=== PATIENT | female | born 1935 | race Caucasian/White ===

== ENCOUNTER 2017-02-17 12:41 | Observation (INO) | payer OTHER ==
[~2017-02-17] VITALS: Ht 170.2 cm; Wt 80.0 kg
[~2017-02-17 12:41] MED LIST: CO Q100C9 PO; GLUC500C3 PO; PRAV20 PO; TAB-TAB PO; [UNRECOGNIZED DRUG - REMARK]
[2017-02-17 12:46] VITALS: PULSE 68; RESP 18; TEMP 97.9; O2SAT 98
[2017-02-17 12:55] VITALS: BP 122/56; PULSE 66
--- NOTE | 2017-02-17 12:55 | PD ---
HPI Chief Complaint: Chest Pain Time Seen by Provider: 12:52 Travel History International Travel<30 days: No Contact w/Intl Traveler<30days: No Traveled to known affect area: No History of Present Illness HPI 82-year-old female presents to the emergency department via EMS for evaluation and midsternal chest pain that radiates to the back. Patient states this started last night around dinnertime. She states it has been continuous since then. Patient was given aspirin 162 mg by mouth and nitroglycerin 3 via EMS. She states her pain went from 05/03-01/01. She states it is worse with deep breathing. She denies any fevers or chills. No cough or congestion. No nausea or vomiting. No diaphoresis. Patient reports history of hypertension, diabetes, liver cancer. She states that she sees Dr. Granado, oncologist, but is not currently undergoing treatment. She states that she will be going to [facility] for treatment. Patient denies any cardiac history. No history of [place]. She does not currently see a chemistry associate. PFSH Past Medical History Arthritis: Yes Asthma: No Autoimmune Disease: No Blood Disorders: No Heart Rhythm Problems: No Cancer: No Cardiovascular Problems: Yes High Cholesterol: Yes Chemotherapy: No Chest Pain: No Congestive Heart Failure: No COPD: No Cerebrovascular Accident: No Diminished Hearing: No Endocrine: Yes GERD: No Glaucoma: No Genitourinary: No Headaches: No Hepatitis: No Hiatal Hernia: No Hypertension: No Immune Disorder: No Kidney Stones: No Musculoskeletal: Yes Neurologic: No Psychiatric: No Respiratory: No Myocardial Infarction: No Radiation Therapy: No Renal Failure: No Seizures: No Sickle Cell Disease: No Sleep Apnea: No Ulcer: No ?: Not Past Surgical History Abdominal Surgery: No (hysterectomy) AICD: No Body Medical Devices: POLIO Cardiac Surgery: No Ear Surgery: No Endocrine Surgery: No Eye Surgery: Yes (cataract) Genitourinary Surgery: No Gynecologic Surgery: Yes (hysterectomy) Hysterectomy: Yes Joint Replacement: Yes (RIGHT HIP LEFT KNEE REPLACEMENT) Oral Surgery: No Pacemaker: No Thoracic Surgery: No Other Surgery: Yes (Hip and knee replacement; hysterectomy;muscle tranplants for polio, catarac) Social History Alcohol Use: Yes (2 X PER WEEK) Tobacco Use: No Substance Use: No Allergies-Medications (Allergen,Severity, Reaction): Coded Allergies: No Known Allergies (Verified , 6/20/14) Reported Meds & Prescriptions Reported Meds & Active Scripts Active Review of Systems Except as stated in HPI: all other systems reviewed are Neg Physical Exam Narrative GENERAL: Well-nourished, well-developed female patient. Afebrile. SKIN: Focused skin assessment warm/dry. HEAD: Normocephalic. Atraumatic. EYES: No scleral icterus. No injection or drainage. NECK: Supple, trachea midline. No JVD or lymphadenopathy. CARDIOVASCULAR: Regular rate and rhythm without murmurs, gallops, or rubs. Bilateral radial and pedal pulses 2+. RESPIRATORY: Breath sounds equal bilaterally. No accessory muscle use. Lungs sounds are clear to auscultation. GASTROINTESTINAL: Abdomen soft, non-tender, nondistended. MUSCULOSKELETAL: No cyanosis, or edema. BACK: Nontender without obvious deformity. No CVA tenderness. Data Data Last Documented VS Vital Signs Date Time Temp Pulse Resp B/P Pulse Ox O2 Delivery O2 Flow Rate FiO2 02/17/17 15:06 69 16 121/71 96 Room Air 02/17/17 12:46 97.9 Orders Electrocardiogram (02/17/17 12:51) Basic Metabolic Panel (Bmp) (02/17/17 12:51) Ckmb (Isoenzyme) Profile (02/17/17 12:51) Complete Blood Count With Diff (02/17/17 12:51) D-Dimer (02/17/17 12:51) Magnesium (Mg) (02/17/17 12:51) Prothrombin Time / Inr (Pt) (02/17/17 12:51) Act Partial Throm Time (Ptt) (02/17/17 12:51) Troponin I (02/17/17 12:51) Chest, Single Ap (02/17/17 12:51) Ecg Monitoring (02/17/17 12:51) Bilateral Bp Monitoring (02/17/17 12:51) Iv Access Insert/Monitor (02/17/17 12:51) Oximetry (02/17/17 12:51) Oxygen Administration (02/17/17 12:51) Sodium Chloride 0.9% Flush (Ns Flush) (02/17/17 13:00) Ct Pulmonary Angiogram (02/17/17 ) Admit Order (Ed Use Only) (02/17/17 15:27) Azithromycin (Zithromax) (02/17/17 15:30) Labs Laboratory Tests Test 02/17/17 13:15 White Blood Count 10.8 TH/MM3 Red Blood Count 4.27 MIL/MM3 Hemoglobin 12.6 GM/DL Hematocrit 38.3 % Mean Corpuscular Volume 89.7 FL Mean Corpuscular Hemoglobin 29.5 PG Mean Corpuscular Hemoglobin 32.9 % Concent Red Cell Distribution Width 14.3 % Platelet Count 92 TH/MM3 Mean Platelet Volume 10.0 FL Neutrophils (%) (Auto) 61.9 % Lymphocytes (%) (Auto) 22.3 % Monocytes (%) (Auto) 14.1 % Eosinophils (%) (Auto) 1.1 % Basophils (%) (Auto) 0.6 % Neutrophils # (Auto) 6.7 TH/MM3 Lymphocytes # (Auto) 2.4 TH/MM3 Monocytes # (Auto) 1.5 TH/MM3 Eosinophils # (Auto) 0.1 TH/MM3 Basophils # (Auto) 0.1 TH/MM3 CBC Comment AUTO DIFF Differential Comment AUTO DIFF CONFIRMED Platelet Estimate LOW Platelet Morphology Comment NORMAL Prothrombin Time 12.0 SEC Prothromb Time International 1.1 RATIO Ratio Activated Partial 30.3 SEC Thromboplast Time D-Dimer Quantitative (PE/DVT) 0.63 MG/L FEU Sodium Level 139 MEQ/L Potassium Level 4.1 MEQ/L Chloride Level 109 MEQ/L Carbon Dioxide Level 20.4 MEQ/L Anion Gap 10 MEQ/L Blood Urea Nitrogen 15 MG/DL Creatinine 1.03 MG/DL Estimat Glomerular Filtration 51 ML/MIN Rate Random Glucose 121 MG/DL Calcium Level 8.6 MG/DL Magnesium Level 1.9 MG/DL Total Creatine Kinase 36 U/L Troponin I LESS THAN 0.02 NG/ML MDM Medical Decision Making Medical Screen Exam Complete: Yes Emergency Medical Condition: Yes Medical Record Reviewed: Yes Interpretation(s) Last Impressions Chest X-Ray 02/17/17 1251 Signed Impressions: Service Date/Time: Friday, February 17, 2017 13:13 - CONCLUSION: Questionable mild left lung base atelectasis and/or infiltrate. Areli Carolina MD CT Angiography 02/17/17 0000 Signed Impressions: Service Date/Time: Friday, February 17, 2017 14:46 - CONCLUSION: 1. Small area of consolidative opacity in the posterior left upper lobe which is nonspecific. This may represent an early pneumonia. 2. No evidence of pulmonary embolism. 3. Enlarged thyroid the left lobe extending into the substernal region. 4. Cirrhotic appearing liver. Tutu Montana MD Differential Diagnosis ACS versus chest wall pain versus pleurisy versus PE Narrative Course 82-year-old female presents to the emergency department via EMS for evaluation of midsternal chest pain that radiates to the back that started at dinner yesterday. She denies any history of cardiac problems or chest pain. EKG, CBC , BMP, magnesium, CK, troponin, PTT, PTT/INR, d-dimer are ordered and pending. Chest x-ray is ordered and pending. Patient received aspirin 162 mg by mouth and nitroglycerin 3 via EMS. EKG shows SR, no acute ST changes. CBC shows platelets of 92. BMP shows creatinine of 1.03, glucose 121. CK is 36. Troponin is less than 0.02. Magnesium is 1.9. PT is 12.0, INR is 1.1, PTT is 30.3. D-dimer is 0.63. Chest x-ray shows questionable mild left lung base atelectasis and/or infiltrate. CT pulmonary angiogram is ordered to rule out PE due to elevated d- dimer. CT PA shows small area of consolidative opacity in the posterior left upper lobe which is nonspecific. This may represent an early pneumonia; no evidence of pulmonary embolism; enlarged thyroid the left lobe extending into the substernal region; cirrhotic appearing liver. Patient is started on azithromycin for possible early pneumonia. WBC is normal. Patient has no cough or cold symptoms. Patient will be brought into the chest pain center to rule out ACS. She is agreeable with this plan. Diagnosis Primary Impression: Chest pain Qualified Code: R07.9 - Chest pain, unspecified type Admitting Information Admitting Physician Requests: Vilma Vargas Feb 17, 2017 12:55
[2017-02-17] MEDS ORDERED: SODIUM CHLORIDE 0.9% FLUSH 10 ML FLUSH IVF PRN (13:00)
[2017-02-17 13:21] VITALS: BP 124/75
[2017-02-17 13:47] LABS: AUTOMATED NEUTROPHIL # 6.7 TH/MM3 (1.8-7.7); BASOPHIL # 0.1 TH/MM3 (0-0.2); BASOPHIL % 0.6 % (0.0-2.0); EOSINOPHIL # 0.1 TH/MM3 (0-0.4); EOSINOPHIL % 1.1 % (0.0-4.0); HEMATOCRIT 38.3 % (35.0-46.0); LYMPH % 22.3 % (9.0-44.0); LYMPHOCYTE # 2.4 TH/MM3 (1.0-4.8); MEAN CELL VOLUME 89.7 FL (80.0-100.0); MEAN CORPUSCULAR HEMOGLOBIN 29.5 PG (27.0-34.0); MEAN CORPUSCULAR HGB CONC 32.9 % (32.0-36.0); MONO % 14.1 % (0.0-8.0); NEUT % 61.9 % (16.0-70.0); PLATELET COUNT 92 TH/MM3 (150-450); RED BLOOD COUNT 4.27 MIL/MM3 (4.00-5.30); RED CELL DISTRIBUTION WIDTH 14.3 % (11.6-17.2); WHITE BLOOD COUNT 10.8 TH/MM3 (4.0-11.0)
[2017-02-17 13:50] LABS: HEMO FLAGS AUTO DIFF
[2017-02-17 14:01] LABS: APTT (PATIENT) 30.3 SEC (24.3-30.1); INTERNATIONAL NORMALIZED RATIO 1.1 RATIO
[2017-02-17 14:16] LABS: PLATELET ESTIMATE SMEAR LOW (NORMAL); PLATELET MORPHOLOGY NORMAL (NORMAL); SCAN/DIFF AUTO DIFF CONFIRMED
[2017-02-17 14:20] LABS: ANION GAP 10 MEQ/L (5-15); BICARBONATE 20.4 MEQ/L (21.0-32.0); BLOOD UREA NITROGEN 15 MG/DL (7-18); CHLORIDE 109 MEQ/L (98-107); GLOMERULAR FILTRATION RATE 51 ML/MIN (>89); MAGNESIUM 1.9 MG/DL (1.5-2.5); POTASSIUM 4.1 MEQ/L (3.5-5.1); SODIUM (NA) 139 MEQ/L (136-145)
[2017-02-17 14:25] LABS: CREATINE KINASE 36 U/L (26-192)
--- NOTE | 2017-02-17 14:32 | RADRPT ---
EXAM DATE/TIME: 02/17/2017 13:13 [facility] COMPARISON: No previous studies available for comparison. INDICATIONS : Chest pains on the left side that radiate to her left scapula x 1 day. MEDICAL HISTORY : None. SURGICAL HISTORY : None. ENCOUNTER: Initial ACUITY: 1 day PAIN SCORE: 2/10 LOCATION: Bilateral chest FINDINGS: Mild questionable left lung base atelectasis and/or infiltrate is seen. There is no appreciable pleur al effusion for technique. Heart and mediastinum are unremarkable. There are atherosclerotic calcifi cations of the aorta due to chronic atherosclerotic disease. CONCLUSION: Questionable mild left lung base atelectasis and/or infiltrate. Areli Carolina MD on February 17, 2017 at 14:30 Board Certified Radiologist. This report was verified electronically.
[2017-02-17] MEDS ORDERED: IOHEXOL 350 MG/ML 10 ML VIAL (for RAD DIAG) IV ONE (14:46)
[2017-02-17 15:06] VITALS: BP 121/71; PULSE 69; RESP 16; O2SAT 96
--- NOTE | 2017-02-17 15:16 | RADRPT ---
EXAM DATE/TIME: 02/17/2017 14:46 [facility] COMPARISON: CHEST SINGLE AP, February 17, 2017, 13:13. INDICATIONS : Chest pains for one day with shortness of breath. IV CONTRAST: 75 cc Omnipaque 350 (iohexol) IV RADIATION DOSE: 23.29 CTDIvol (mGy) MEDICAL HISTORY : Cardiovascular disease. SURGICAL HISTORY : Hysterectomy. ENCOUNTER: Initial ACUITY: 1 day PAIN SCALE: 4/10 LOCATION: Bilateral chest TECHNIQUE: Volumetric scanning of the chest was performed using a pulmonary embolism protocol MIP images were re constructed. Using automated exposure control and adjustment of the mA and/or kV according to patien t size, radiation dose was kept as low as reasonably achievable to obtain optimal diagnostic quality images. FINDINGS: PULMONARY ARTERIES: No filling defects are seen in the pulmonary arteries through the segmental level. LUNGS: There is a small focal consolidative opacity in the posterior left upper lobe measuring up to approxi mately 1.5 cm in diameter. There is no pneumothorax . No concerning pulmonary nodule is visualized. PLEURAE: There is no pleural thickening or pleural effusion. MEDIASTINUM: There is good visualization of the great vessels of the middle mediastinum. No evidence of mediastin al or hilar adenopathy/mass. Coronary artery calcifications are present. Heart size is mildly promine nt. MUSCULOSKELETAL: Within normal limits for patient age. MISCELLANEOUS: The visualized upper abdominal organs demonstrate no acute abnormality. The thyroid gland is enlarged and inhomogeneous with benign calcification on the left. Left lobe is larger than the right extends down into the substernal region consistent with goiter. The liver is lobular in contour and mildly he terogeneous. There is steatosis. CONCLUSION: 1. Small area of consolidative opacity in the posterior left upper lobe which is nonspecific. This ma y represent an early pneumonia. 2. No evidence of pulmonary embolism. 3. Enlarged thyroid the left lobe extending into the substernal region. 4. Cirrhotic appearing liver. Tutu Montana MD on February 17, 2017 at 15:12 Board Certified Radiologist. This report was verified electronically.
[2017-02-17] MEDS ORDERED: NADO40TA PO (15:30)
[2017-02-17] MEDS ORDERED: AZITHROMYCIN 250 MG TAB PO ONE (15:30)
[2017-02-17] MEDS ORDERED: SITA50 PO (15:30)
[2017-02-17] MEDS ORDERED: PRAV20TA2 PO (15:30)
[2017-02-17] MEDS ORDERED: LOSA25TA PO (15:30)
[2017-02-17] MEDS ORDERED: MULT-135 PO (15:30)
[2017-02-17] MEDS ORDERED: PLAQ200T PO (15:30)
--- NOTE | 2017-02-17 15:41 | PD ---
Data Data Last Documented VS Vital Signs Date Time Temp Pulse Resp B/P Pulse Ox O2 Delivery O2 Flow Rate FiO2 02/17/17 15:06 69 16 121/71 96 Room Air 02/17/17 12:46 97.9 Orders Electrocardiogram (02/17/17 12:51) Basic Metabolic Panel (Bmp) (02/17/17 12:51) Ckmb (Isoenzyme) Profile (02/17/17 12:51) Complete Blood Count With Diff (02/17/17 12:51) D-Dimer (02/17/17 12:51) Magnesium (Mg) (02/17/17 12:51) Prothrombin Time / Inr (Pt) (02/17/17 12:51) Act Partial Throm Time (Ptt) (02/17/17 12:51) Troponin I (02/17/17 12:51) Chest, Single Ap (02/17/17 12:51) Ecg Monitoring (02/17/17 12:51) Bilateral Bp Monitoring (02/17/17 12:51) Iv Access Insert/Monitor (02/17/17 12:51) Oximetry (02/17/17 12:51) Oxygen Administration (02/17/17 12:51) Sodium Chloride 0.9% Flush (Ns Flush) (02/17/17 13:00) Ct Pulmonary Angiogram (02/17/17 ) Admit Order (Ed Use Only) (02/17/17 15:27) Azithromycin (Zithromax) (02/17/17 15:30) Labs Laboratory Tests Test 02/17/17 13:15 White Blood Count 10.8 TH/MM3 Red Blood Count 4.27 MIL/MM3 Hemoglobin 12.6 GM/DL Hematocrit 38.3 % Mean Corpuscular Volume 89.7 FL Mean Corpuscular Hemoglobin 29.5 PG Mean Corpuscular Hemoglobin 32.9 % Concent Red Cell Distribution Width 14.3 % Platelet Count 92 TH/MM3 Mean Platelet Volume 10.0 FL Neutrophils (%) (Auto) 61.9 % Lymphocytes (%) (Auto) 22.3 % Monocytes (%) (Auto) 14.1 % Eosinophils (%) (Auto) 1.1 % Basophils (%) (Auto) 0.6 % Neutrophils # (Auto) 6.7 TH/MM3 Lymphocytes # (Auto) 2.4 TH/MM3 Monocytes # (Auto) 1.5 TH/MM3 Eosinophils # (Auto) 0.1 TH/MM3 Basophils # (Auto) 0.1 TH/MM3 CBC Comment AUTO DIFF Differential Comment AUTO DIFF CONFIRMED Platelet Estimate LOW Platelet Morphology Comment NORMAL Prothrombin Time 12.0 SEC Prothromb Time International 1.1 RATIO Ratio Activated Partial 30.3 SEC Thromboplast Time D-Dimer Quantitative (PE/DVT) 0.63 MG/L FEU Sodium Level 139 MEQ/L Potassium Level 4.1 MEQ/L Chloride Level 109 MEQ/L Carbon Dioxide Level 20.4 MEQ/L Anion Gap 10 MEQ/L Blood Urea Nitrogen 15 MG/DL Creatinine 1.03 MG/DL Estimat Glomerular Filtration 51 ML/MIN Rate Random Glucose 121 MG/DL Calcium Level 8.6 MG/DL Magnesium Level 1.9 MG/DL Total Creatine Kinase 36 U/L Troponin I LESS THAN 0.02 NG/ML MDM Supervised Visit with KARUNA: Yes Narrative Course The history, exam, and medical decision-making in the associated midlevel provider note were completed with my assistance. I reviewed and agree with the findings presented. I attest that I had a [id number] encounter with the patient on the same day, and personally performed and documented my assessment and findings in the medical record. *My assessment and Findings: This is an 82-year-old female who has a history of malignancy who presents to the emergency department with chest discomfort in the center of her chest that radiates to her back concerning for acute coronary syndrome. EKG is reassuring and initial troponin is negative. CT pulmonary angiogram was obtained which was negative for pulmonary embolism. I did demonstrate a possible early infiltrate patient is afebrile and has no leukocytosis. We'll put her on azithromycin but I still think she requires serial cardiac enzymes and risk stratification in the chest pain center. Diagnosis Primary Impression: Chest pain Qualified Code: R07.9 - Chest pain, unspecified type Lorraine Tan MD Feb 17, 2017 15:41
[2017-02-17] MEDS ORDERED: ACETAMINOPHEN 500 MG CPLT PO PRN (19:45)
[2017-02-17] MEDS ORDERED: NITROGLYCERIN 0.4 MG SL 25 TABS/BTL SL PRN (19:45)
[2017-02-17] MEDS ORDERED: ONDANSETRON HCL 4 MG/2 ML VIAL IV PRN (19:45)
[2017-02-17] MEDS ORDERED: SODIUM CHLORIDE 0.9% FLUSH 10 ML FLUSH IV FLUSH PRN (19:45)
[2017-02-17] MEDS ORDERED: SODIUM CHLORIDE 0.9% FLUSH 10 ML FLUSH IV FLUSH SCH (21:00)
[2017-02-17 21:38] LABS: CREATINE KINASE 34 U/L (26-192)
[2017-02-17 22:54] VITALS: BP 132/63; PULSE 68; RESP 18; TEMP 97.8; O2SAT 94
[2017-02-18 00:06] LABS: CREATINE KINASE 37 U/L (26-192)
[2017-02-18 02:00] VITALS: PULSE 69
[2017-02-18 04:01] VITALS: BP 100/57; PULSE 69; RESP 18; TEMP 97.7; O2SAT 91
[2017-02-18 08:00] VITALS: PULSE 63
[2017-02-18 08:15] VITALS: BP 135/62; PULSE 68; RESP 18; TEMP 98; O2SAT 92
[2017-02-18] MEDS ORDERED: ASPIRIN 325 MG TAB PO SCH (09:00)
--- NOTE | 2017-02-18 09:58 | HHI.HP ---
[facility] Primary Care Physician Chari Washburn MD Chief Complaint Chest pain History of Present Illness 82-year-old female with known diabetes, hypertension, and hyperlipidemia presents to emergency room for further evaluation of substernal chest pain. Onset Wednesday evening. Location substernal with radiation to her back. Characterized as a sudden quick sharp pain that continued all day Wednesday. No associated symptoms. Hurt to take a deep breath. No known precipitating or relieving factors. Has never had chest discomfort in the past. Formal stress testing. Review of Systems General: No fatigue,weakness, fever, chills, recent illness, or change in appetite. Has been her general state of health. Appointment with [facility] scheduled on March 16 for second opinion regarding liver cancer diagnosis and Dr. Granado's recommendation for liver biopsy. Plans to travel to [place] February. HEENT: No CASTRO, no dysphasia CV: As stated above. Denies any current chest pressure. No intermittent leg pain or dizziness. RESP: No SOB, cough, wheeze, or recent URI. GI: No nausea, vomiting, bowel changes, diarrhea, constipation, pain, distention , melena, blood in the stool. No unintentional weight gain or weight loss. : No dysuria, urgency, frequency EXT: No lower leg edema, no paraesthesias MS: Walks with walker, polio as a child. No discomfort or change in ROM. NEURO: No change in memory, dizziness, difficulty with balance, LOC, motor/ sensory deficits PSYCH: No anxiety or depression. SKIN: No rashes, no concerning lesions Past Family Social History Allergies: Coded Allergies: No Known Allergies (Verified , 04/13/14) Past Medical History Hyperlipidemia, hypertension, diabetes, GERD, arthritis, liver cancer Past Surgical History Hysterectomy, bilateral cataracts, right hip replacement, knee replacement Reported Medications Active Reported Nadolol 40 Mg Tab 40 Mg PO HS Losartan (Losartan Potassium) 25 Mg Tab 25 Mg PO DAILY Plaquenil (Hydroxychloroquine Sulfate) 200 Mg Tab 200 Mg PO HS Take with food Januvia (Sitagliptin Phosphate) 50 Mg Tab 50 Mg PO HS Pravastatin 20 Mg Tab 20 Mg PO HS Multi Vitamin (Multiple Vitamin) 1 Tab Tab 1 Tab PO DAILY Active Ordered Medications Current Medications Medications (Trade) Dose Ordered Sig/Alek Route Start Time Stop Time Status Last Admin (Tylenol) 500 mg Q4H PRN PO 02/17/17 19:45 (Zofran Inj) 4 mg Q6H PRN IV 02/17/17 19:45 (Nitrostat Sl) 0.4 mg Q5M PRN SL 02/17/17 19:45 (Aspirin) 325 mg DAILY PO 02/18/17 09:00 Family History Noncontributory for early onset cardiovascular disease. Social History Known hypertension, diabetes, hyperlipidemia. Quit smoking 40+ years ago. Denies any alcohol or illegal drug use. Walks with walker or cane, polio as a child. Past cardiac testing No recent cardiac testing. No cardiac history. Never required a plate cleaner. Physical Exam Vital Signs Vital Signs Date Time Temp Pulse Resp B/P Pulse Ox O2 Delivery O2 Flow Rate FiO2 02/18/17 08:15 98.0 68 18 135/62 92 02/18/17 04:01 97.7 69 18 100/57 91 02/18/17 02:00 69 02/17/17 22:54 97.8 68 18 132/63 94 02/17/17 15:06 69 16 121/71 96 Room Air 02/17/17 13:21 Room Air 02/17/17 13:21 98 Room Air 02/17/17 13:21 124/75 Room Air 02/17/17 12:55 66 122/56 02/17/17 12:46 97.9 68 18 98 Physical Exam GENERAL: Alert WN, WD, NAD, pleasant, elderly female HEAD: NC, AT EYES: Sclera clear, conjunctiva without injection, pupils equal and round ENT: Mucous membranes pink and moist NECK: Supple, no masses, trachea midline CV: RRR, without murmur, rub, gallop, no JVD, S1-S2 no S3-S4. No carotid bruits. RESP: Clear lungs throughout bilateral, no crackles, wheeze, rhonchi, symmetrical chest rise, nonlabored, able to speak in full sentences ABD: Soft, NT, ND, no masses, positive bowel tones BACK: No CVAT EXT: Pulses +24, no dependent edema MS: Normal tone 4 extremities, nontender, no obvious deformities, full range of motion NEURO: CN II through CN XII grossly intact, motor strength 5/5, gait WNL PSYCH: A+O 3, pleasant affect, appropriate speech, appropriate mood and affect , insight and judgment SKIN: Normal turgor, normal texture, no lesions, no rashes, brisk cap refill, even hair distribution Laboratory Laboratory Tests Test 02/17/17 02/17/17 02/17/17 13:15 20:10 23:20 White Blood Count 10.8 Red Blood Count 4.27 Hemoglobin 12.6 Hematocrit 38.3 Mean Corpuscular Volume 89.7 Mean Corpuscular Hemoglobin 29.5 Mean Corpuscular Hemoglobin 32.9 Concent Red Cell Distribution Width 14.3 Platelet Count 92 Mean Platelet Volume 10.0 Neutrophils (%) (Auto) 61.9 Lymphocytes (%) (Auto) 22.3 Monocytes (%) (Auto) 14.1 Eosinophils (%) (Auto) 1.1 Basophils (%) (Auto) 0.6 Neutrophils # (Auto) 6.7 Lymphocytes # (Auto) 2.4 Monocytes # (Auto) 1.5 Eosinophils # (Auto) 0.1 Basophils # (Auto) 0.1 CBC Comment AUTO DIFF Differential Comment AUTO DIFF CONFIRMED Platelet Estimate LOW Platelet Morphology Comment NORMAL Prothrombin Time 12.0 Prothromb Time International 1.1 Ratio Activated Partial 30.3 Thromboplast Time D-Dimer Quantitative (PE/DVT) 0.63 Sodium Level 139 Potassium Level 4.1 Chloride Level 109 Carbon Dioxide Level 20.4 Anion Gap 10 Blood Urea Nitrogen 15 Creatinine 1.03 Estimat Glomerular Filtration 51 Rate Random Glucose 121 Calcium Level 8.6 Magnesium Level 1.9 Total Creatine Kinase 36 34 37 Troponin I LESS THAN 0.02 LESS THAN 0.02 LESS THAN 0.02 Result Diagram: 02/17/17 1315 02/17/17 1315 Imaging Last Impressions Chest X-Ray 02/17/17 1251 Signed Impressions: Service Date/Time: Friday, February 17, 2017 13:13 - CONCLUSION: Questionable mild left lung base atelectasis and/or infiltrate. KRichie Carolina MD CT Angiography 02/17/17 0000 Signed Impressions: Service Date/Time: Friday, February 17, 2017 14:46 - CONCLUSION: 1. Small area of consolidative opacity in the posterior left upper lobe which is nonspecific. This may represent an early pneumonia. 2. No evidence of pulmonary embolism. 3. Enlarged thyroid the left lobe extending into the substernal region. 4. Cirrhotic appearing liver. Tutu Montana MD Course EKGs 3 EKGs normal sinus rhythm, normal axis, no ST or T-segment changes Assessment and Plan Assessment and Plan #1 Chest painadmitted to chest pain center. Ruled out with 3 sets of EKGs, cardiac enzymes, and monitored overnight. Seen and evaluated by Dr. Danyelle Joseph. Plans to complete a nuclear treadmill stress test however due to patient history of polio and use of walker we'll complete a chemical stress test. If stress test unremarkable will discharge later this afternoon. Dedra Don Feb 18, 2017 09:58
[2017-02-18] MEDS ORDERED: REGADENOSON INJ 0.4 MG/5 ML SYR ONE (09:59)
[2017-02-18] MEDS ORDERED: MULTIVITAMIN TAB PO SCH (10:00)
[2017-02-18] MEDS ORDERED: LOSARTAN 25 MG TAB PO SCH (10:00)
[2017-02-18 11:55] VITALS: BP 121/61; PULSE 68; RESP 18; TEMP 97.4; O2SAT 92
--- NOTE | 2017-02-18 12:48 | RADRPT ---
EXAM DATE/TIME: 02/18/2017 09:27 [facility] COMPARISON: No previous studies available for comparison. INDICATIONS : Midsternal chest pain radiating to the back for 1 day. Angina. DOSE: 27.3 mCi Tc99m Myoview at stress. 8.8 mCi Tc99m Myoview at rest. 0.4 mg Lexiscan STRESS SYMPTOMS: Stomach pain and dyspnea. EJECTION FRACTION: > 70% MEDICAL HISTORY : Hypercholesterolemia. Hypertension. Diabetes mellitus type 2. Liver cancer. SURGICAL HISTORY : Hysterectomy. Total knee replacement, right. ENCOUNTER: Initial ACUITY: 1 day PAIN SCALE: 7/10 LOCATION: Midsternal chest TECHNIQUE: The patient underwent pharmacologic stress with infusion of prescribed dose. Continuous ECG tracing was monitored during stress. Gated SPECT imaging was performed after stress and conventional SPECT i maging was performed at rest. The examination was performed on a SPECT/CT scanner, both attenuation and non-corrected datasets were reviewed. FINDINGS: DISTRIBUTION: The maximum perfused segment at stress is in the anterolateral wall. PERFUSION STUDY: The pattern of perfusion at stress is within normal limits. Mild apical thinning. GATED STUDY: There is intact wall motion and thickening without hypokinetic or dyskinetic segments. CONCLUSION: 1. Mild apical thinning with no reversibility to suggest ischemia. 2. Excellent wall motion throughout with an estimated ejection fraction of greater than 70%. RISK CATEGORY: Low (<1% Annual Mortality Rate) El Torres MD on February 18, 2017 at 12:45 Board Certified Radiologist. This report was verified electronically.
--- NOTE | 2017-02-18 13:44 | HHI.DCPOC ---
Discharge Care Plan Diagnosis: (1) Musculoskeletal chest pain (2) Type 2 diabetes mellitus Goals to Promote Your Health * To prevent worsening of your condition and complications * To maintain your health at the optimal level Directions to Meet Your Goals Take your medications as prescribed Follow your dietary instruction Follow activity as directed Keep your appointments as scheduled Take your immunizations and boosters as scheduled If your symptoms worsen call your PCP, if no PCP go to Urgent Care Center or Emergency Room Smoking is Dangerous to Your Health. Avoid second hand smoke Call the 24-hour hour crisis hotline for domestic abuse at Dedra Don Feb 18, 2017 13:44
--- NOTE | 2017-02-18 14:01 | TR ---
Date Performed: 02/18/2017 Time Performed: 10:28:33 DOCTOR: Danyelle Joseph DRUG LIST: CLINICAL HISTORY: REASON FOR TEST: REASON FOR ENDING: OBSERVATION: CONCLUSION: Lexiscan stress test was performed under standard four minute protocol. Radionuclid e was injected one minute prior to ending the test. No electrocardiographic abormalities were present to suggest ischemia. Nuclear imaging and interpretation are pending. COMMENTS:
--- NOTE | 2017-02-18 14:04 | EKG ---
Date Performed: 02/17/2017 Time Performed: 23:02:23 PTAGE: 82 years EKG: Sinus rhythm NORMAL ECG Since PREVIOUS TRACING , no significant change noted PREVIOUS TRACIN02/17/2017 20.13 DOCTOR: Danyelle Joseph Interpretating Date/Time 02/18/2017 14:00:25
--- NOTE | 2017-02-18 14:05 | EKG ---
Date Performed: 02/17/2017 Time Performed: 20:13:59 PTAGE: 82 years EKG: Sinus rhythm MODERATE VOLTAGE CRITERIA FOR LVH, CONSIDER NORMAL VARIANT BORDERLINE ECG Since PREVIOUS TRACING , no significant change noted PREVIOUS TRACIN02/17/2017 13.10 DOCTOR: Danyelle Joseph Interpretating Date/Time 02/18/2017 14:01:06
--- NOTE | 2017-02-18 14:09 | EKG ---
Date Performed: 02/17/2017 Time Performed: 13:10:25 PTAGE: 82 years EKG: Sinus rhythm BORDERLINE LEFT AXIS DEVIATION MODERATE VOLTAGE CRITERIA FOR LVH, CONSIDER NORMAL VARIANT BORDERLINE ECG Since PREVIOUS TRACING , no significant change noted PREVIOUS TRACIN09/04/2006 13.24 DOCTOR: Danyelle Joseph Interpretating Date/Time 02/18/2017 14:05:16
[2017-02-18] MEDS ORDERED: NADOLOL 40 MG TAB PO SCH (21:00)
[2017-02-18] MEDS ORDERED: HYDROXYCHLOROQUINE SULFATE 200 MG TAB PO SCH (21:00)
[2017-02-18] MEDS ORDERED: PRAVASTATIN SOD 20 MG TAB PO SCH (21:00)
== END 2017-02-18 15:32 | disposition home or self-care (01) ==
LOC: NEPC 12:41 → NEDA 15:29 → NEPGCP 22:52
PROVIDERS: ATTEND Internal Medicine Cardiovascular Disease
DX: R07.9 Chest pain, unspecified (principal); I10 Essential (primary) hypertension; J98.11 Atelectasis; R94.31 Abnormal electrocardiogram [ECG] [EKG]; E11.9 Type 2 diabetes mellitus without complications; E78.5 Hyperlipidemia, unspecified; K21.9 Gastro-esophageal reflux disease without esophagitis; E78.00 Pure hypercholesterolemia, unspecified; Z79.82 Long term (current) use of aspirin; Z86.12 Personal history of poliomyelitis; Z96.641 Presence of right artificial hip joint; Z96.659 Presence of unspecified artificial knee joint; Z85.05 Personal history of malignant neoplasm of liver
CPT/HCPCS: 71010; 71275; 78452; 80048; 82550; 83735; 84484; 85025; 85379; 85610; 85730; 93005; 93017; 99285; A9502; G0378; J2785; Q9967